=== PATIENT | female | born 1955 | race Caucasian/White ===

== ENCOUNTER 2018-11-27 13:05 | Day surgery (SDC) | payer MEDICAID ==
[~2018-11-27] VITALS: Ht 167.6 cm; Wt 61.2 kg
[~2018-11-27 13:05] MED LIST: LACTATED RINGERS 1,000 ML IV SCH
[2018-11-27] MEDS ORDERED: LEVO75TA7 PO (13:07)
[2018-11-27] MEDS ORDERED: LIDOCAINE HCL 1% 20ML VIAL (Pyxis) INJ ONE (15:20)
[2018-11-27] MEDS ORDERED: BUPIVACAINE HCL/PF 0.5% (5MG/ML) 10ML ONE ×2 (15:20→15:21)
[2018-11-27] MEDS ORDERED: BACITRACIN 50,000 UNITS/VIAL ONE (15:21)
[2018-11-27] MEDS ORDERED: FENTANYL CITRATE/PF 50MCG/ML 2ML VIAL ONE (15:55)
[2018-11-27] MEDS ORDERED: ONDANSETRON HCL 4MG/2ML INJ ONE (15:56)
[2018-11-27] MEDS ORDERED: SUCCINYLCHOLINE CHLORIDE 200MG/10ML IV ONE (15:56)
[2018-11-27] MEDS ORDERED: LIDOCAINE HCL/PF 1% 10 MG/ML 5ML VIAL ONE (15:56)
[2018-11-27] MEDS ORDERED: MIDAZOLAM HCL 2 MG/2 ML VIAL ONE (15:56)
[2018-11-27] MEDS ORDERED: GLYCOPYRROLATE 0.2 MG/ML 2ML VIAL ONE (15:56)
[2018-11-27] MEDS ORDERED: PROPOFOL 200MG/20ML VIAL IV ONE (15:56)
[2018-11-27] MEDS ORDERED: METOCLOPRAMIDE HCL 10MG/2ML VIAL ONE (15:56)
[2018-11-27] MEDS ORDERED: SKIN ADHESIVE 0.7 GM EA TOP ONE (16:35)
[2018-11-27] MEDS ORDERED: KETOROLAC 30MG/ML VIAL ONE (16:39)
[2018-11-27] MEDS ORDERED: SODIUM CHLORIDE 0.9% 1,000 ML IV ONE (16:54)
[2018-11-27] MEDS ORDERED: HYDROMORPHONE HCL/PF 2MG/ML CPJ IV PRN (17:00)
[2018-11-27] MEDS ORDERED: ONDANSETRON HCL 4MG/2ML INJ IV PRN (17:00)
[2018-11-27] MEDS ORDERED: MEPERIDINE HCL/PF 25MG/ML CPJ IV PRN ×2 (17:00)
== END 2018-11-27 18:00 | disposition home or self-care (01) ==
LOC: OR 13:05
PROVIDERS: ATTEND Specialist
DX: D17.9 Benign lipomatous neoplasm, unspecified (principal)
CPT/HCPCS: 21554; 88304; J0330; J1885; J2250; J2405; J2704; J2765; J3010; J3490